=== PATIENT | female | born 1975 | race Caucasian/White ===

== ENCOUNTER → 2023-04-05 15:30 | Outpatient (CLI) | payer OTHER, SELFPAY ==
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
== END ==
DX: M47.892 Other spondylosis, cervical region (principal)
CPT/HCPCS: 72040